=== PATIENT | male | born 1980 | race African-American/Black ===

== ENCOUNTER 2016-12-12 07:45 | Emergency (ER) | payer OTHER ==
[~2016-12-12] VITALS: Ht 182.9 cm; Wt 93.0 kg
[2016-12-12] MEDS ORDERED: KETOROLAC 60MG/2ML VIAL IM ONE (10:45)
[2016-12-12] MEDS ORDERED: HYDROCODONE/ACETAMINOPHEN 5/325MG TABLET PO ONE (10:45)
[2016-12-12 12:02] VITALS: BP 121/66
== END 2016-12-12 13:23 | disposition home or self-care (01) ==
LOC: ER 07:54
DX: S16.1XXA Strain of muscle, fascia and tendon at neck level, initial encounter (principal); J45.909 Unspecified asthma, uncomplicated; F12.10 Cannabis abuse, uncomplicated; F17.200 Nicotine dependence, unspecified, uncomplicated; V49.88XA Car occupant (driver) (passenger) injured in other specified transport accidents, initial encounter; Y93.89 Activity, other specified; Y92.89 Other specified places as the place of occurrence of the external cause; Y99.8 Other external cause status
CPT/HCPCS: 72050; 99284; Z7610

== ENCOUNTER 2016-12-13 22:51 | Emergency (ER) | payer OTHER ==
[~2016-12-13] VITALS: Ht 182.9 cm; Wt 92.0 kg
[2016-12-14] MEDS ORDERED: CYCLOBENZAPRINE 10MG TABLET PO ONE (01:00)
[2016-12-14] MEDS ORDERED: KETOROLAC 60MG/2ML VIAL IM ONE (01:00)
[2016-12-14 04:08] VITALS: BP 107/61
== END 2016-12-14 04:09 | disposition home or self-care (01) ==
LOC: ER 12-14 00:30
DX: M54.2 Cervicalgia (principal); M54.9 Dorsalgia, unspecified; R51 Headache; R10.30 Lower abdominal pain, unspecified; M25.512 Pain in left shoulder; M25.511 Pain in right shoulder; F12.10 Cannabis abuse, uncomplicated; J45.909 Unspecified asthma, uncomplicated; Z88.8 Allergy status to other drugs, medicaments and biological substances; V89.2XXA Person injured in unspecified motor-vehicle accident, traffic, initial encounter; Y93.89 Activity, other specified; Y92.89 Other specified places as the place of occurrence of the external cause; Y99.8 Other external cause status
CPT/HCPCS: 96372; 99283; J1885; Z7610; L0172